=== PATIENT | male | born 1995 | race Caucasian/White ===

== ENCOUNTER 2017-04-12 22:11 | Emergency (ER) | payer BC ==
[~2017-04-12] VITALS: Ht 177.8 cm; Wt 73.0 kg
[2017-04-12 22:14] VITALS: Ht 177.8 cm; Wt 73.0 kg
--- NOTE | 2017-04-12 23:01 | ERD ---
ER Documentation Chief Complaint Date/Time DATE: 04/12/17 TIME: 23:00 Chief Complaint left foot pain since 3 days ago while playing basketball HPI 21-year-old male who presents emergency department for left foot/ankle pain. Stated this started last Thursday while he was playing basketball. Patient reports that he jumped for a rebound, landed on his left foot. Patient is requesting x-ray of his left foot and left ankle. Denies headache, loss of consciousness, dizziness, blurry vision, changes in vision, photophobia, facial pain, ear pain, throat pain, difficulty swallowing, neck pain, shoulder pain, chest pain, cough, hemoptysis, abdominal pain, back pain, loss of appetite, nausea, vomiting, hematochezia, diarrhea, constipation, urinary symptoms, bladder and bowel incontinences, extremity weakness, extremity tenderness, numbness or tingling sensation, recent travel, recent exposure to illness, recent antibiotic use in the last 3 months, fever, chills. No known drug allergies. No past medical history. Surgical history is of nasal surgery secondary to multiple facial injuries. Not working at this time. Smokes weed. Stated that sometimes he uses ecstasy. Denies use of alcoholic beverages. ROS All systems reviewed and are negative except as per history of present illness. Medications Home Meds No Active Prescriptions or Reported Meds Allergies Allergies: Coded Allergies: vancomycin (Verified Allergy, Mild, rash, 06/06/14) PMhx/Soc History of Surgery: No Anesthesia Reaction: No Hx Neurological Disorder: No Hx Respiratory Disorders: No Hx Cardiac Disorders: No Hx Psychiatric Problems: No Hx Miscellaneous Medical Probl: Yes (MENINGITIS) Hx Alcohol Use: No Hx Substance Use: No Hx Tobacco Use: No Physical Exam Vitals Vital Signs Date Time Temp Pulse Resp B/P Pulse Ox O2 Delivery O2 Flow Rate FiO2 04/12/17 22:14 97.4 71 20 124/99 100 Physical Exam CONSTITUTIONAL: Well-appearing; well-nourished; in no apparent distress. HEAD: Normocephalic; atraumatic. EYES: Conjunctiva clear, sclera non-icteric, EOM intact. PERRL Ears: Hearing intact. EACs clear, TMs non-bulging, non-inflamed, translucent & mobile, ossicles normal appearance, No obstructions, no erythema, no discharges Nose: No obstructions. No polyps. No external lesions. Mucosa non-inflamed. No external lesions, septum and turbinates normal. No rhinorrhea. No discharges. Frontal sinus is non-tender to palpation. Maxillary sinus is non-tender to palpation. MOUTH: Moist mucous membranes, no lesion, no obstructions, no vesicles, no thrush, patent airway Throat: Uvula in midline. Right tonsil is +1 with no erythema, no exudate. Left tonsil is +1 with no erythema, no exudate. Tolerating secretions well. Good gag reflex. Patent airway. Neck: Supple, without lesions, bruits, or adenopathy. No mass. Thyroid non- enlarged and non-tender to palpation. CHEST: Symmetrical chest. Respirations even and not labored. No retractions noted. CARDIOVASCULAR: Normal S1, S2. RRR. No murmurs, gallops. RESPIRATORY: Normal chest excursion with respiration; breath sounds clear and equal bilaterally; no wheezes, rhonchi, or rales. Breathing even and unlabored. Speaking in clear, full, and complete sentences w/ ease. ABDOMEN: Normal bowel sounds normal. Soft, round, non-distended, non-guarding, no tenderness, no rebound, no organomegaly, no masses, no pulsating abdominal mass. No hernia. No peritoneal signs. : No CVA tenderness. BACK: Symmetrical shoulder. Spine is midline without deformity, tenderness. No evidence of trauma or deformity. PELVIS: Stable pelvis. No evidence of trauma or deformity. MUSCULOSKELETAL: Normal gait and station. No misalignment, asymmetry, crepitation, defects, tenderness, masses, effusions, decreased range of motion, instability, atrophy or abnormal strength or tone in the head, neck, spine, ribs , pelvis or extremities except left foot has mild swelling on the superior aspect. Left ankle has tenderness to palpation on medial and lateral aspect. Left foot/ankle has no obvious deformity and discoloration. Left pedal pulse is within normal limits. Circulation and sensation is intact. No neurovascular deficits. Left knee is unremarkable. Bilateral hips are stable and unremarkable. Right lower extremities unremarkable. No calf tenderness. NEUROVASCULAR: Distal pulses are present. Pedal pulse are present, equal, and normal. Capillary refills are < 2 seconds. NEUROLOGIC: Alert and oriented x4. Speaks full and clear sentences. Sensation to pain, touch, and proprioception normal. Grossly unremarkable. No neurologic deficits. Romberg test is negative. PSYCHOLOGICAL: The patients mood and manner are appropriate. No hallucinations , delusions. Not SI. Not HI. Has the capacity to decide for self SKIN: Normal for age and ethnicity; warm; dry; good turgor; no apparent lesions or exudates. No rashes, hives, discoloration. Intact. Results 24 hrs Current Medications Medications (Trade) Dose Ordered Sig/Hilda Route PRN Reason Start Time Stop Time Status Last Admin Dose Admin Ketorolac Tromethamine (Toradol) 60 mg ONCE STAT IM 04/12/17 23:01 04/12/17 23:03 DC Procedures/MDM Examination: Please see physical examination. Disease process, medical treatment was explained to the patient and family member. They verbalized understanding and agreed with the diagnostic tests, medical treatment, and follow-up care. Radiology: X-ray of the left ankle Impression: Unremarkable left ankle series. X-ray of the left foot Impression: Stress fracture at the lateral aspect of the proximal metaphysis of the fifth metatarsal. Treatment: Toradol IM. Posterior short leg splint. Crutches. Re-evaluation: Denies headache, dizziness, blurry vision, neck pain, shoulder pain, chest pain, back pain, abdominal pain, nausea, vomiting. No episode of emesis in the emergency department. Alert and oriented 4. Speaks full and clear sentences. Respirations even and unlabored. Lung sounds clear to auscultation. Active bowel sounds. There is no right upper/right lower/ epigastric/left upper/left lower abdominal tenderness and light and deep palpation. Negative on Rovsings sign. Negative Valeri sign. Able to jump 5 times without developing right-sided abdominal pain. No peritoneal signs. Ambulatory with steady gait. No neurovascular deficits. No neurological deficits. No neurovascular deficit prior to and after the application of splint. Consultation: None. Differential diagnosis: Fracture versus dislocation versus displacement versus contusion versus sprain Medical decision makin-year-old male who presents emergency department for left foot/ankle pain. Stated this started last Thursday while he was playing basketball. Patient reports that he jumped for a rebound, landed on his left foot. Patient is requesting x-ray of his left foot and left ankle. Patient's complaint, patient's history about his complaint, my physical findings, diagnostic test results, my reevaluation are consistent my final diagnosis of stress fracture of the proximal metaphysis of the fifth metatarsal. Instructed to follow-up with an orthopedic doctor in the next 24-48 hours. He was also instructed on nonweightbearing to the affected site. Patient verbalized understanding. Medications prescribed are the following: Motrin. [place]. Patient and family member are made aware of the side effects and adverse reactions of the medications prescribed. Instructed on when to seek emergent and medical attention in case allergic/anaphylactic reactions or severe side effects and or adverse reactions to medications. Patient and family member verbalized understanding. Patient instructed Instructed to follow-up with his PCP in 24-48 hours. PCP to refer patient to orthopedic doctor in the next 24-48 hours. Instructed to Call 911 for chest pain, shortness of breath. Advised to come back here in ED as soon as possible for severity of symptoms which includes but not limited to: any new symptoms; shortness of breath/difficulty of breathing; cardiovascular changes; severe gastrointestinal symptoms; signs and symptoms of bleeding and or infection; signs of compartment syndrome/neurovascular changes; neurological changes/deficits. Patient and family member verbalized understanding. Upon discharge, patient is alert and oriented x 4, speaks full and clear sentences, denies pain, has no neurological deficits, has no neurovascular deficits, difficulty of breathing. Breathing even and unlabored. Lung sounds are clear to auscultation. Not in distress. Appears comfortable. Ambulatory with steady gait. Appears satisfied with care provided here in ED. Departure Diagnosis: Primary Impression: Foot pain Additional Impressions: Injury of foot Metatarsal bone fracture Condition: Stable Additional Instructions: Instructed to follow-up with his PCP in 24-48 hours. PCP to refer patient to orthopedic doctor in the next 24-48 hours. Instructed to Call 911 for chest pain, shortness of breath. Advised to come back here in ED as soon as possible for severity of symptoms which includes but not limited to: any new symptoms; shortness of breath/difficulty of breathing; cardiovascular changes; severe gastrointestinal symptoms; signs and symptoms of bleeding and or infection; signs of compartment syndrome/neurovascular changes; neurological changes/deficits. Patient and family member verbalized understanding. ANAYELI BOWIE Apr 12, 2017 23:01
[2017-04-12] MEDS: KETOROLAC 60 MG INJ IM STA ×2 (23:14→23:17)
--- NOTE | 2017-04-12 23:45 | RADRPT ---
PROCEDURE: X-ray left foot CLINICAL INDICATION: Left foot injury and pain TECHNIQUE: 3 views left foot COMPARISON: None FINDINGS: Stress fracture at the lateral proximal metadiaphysis of the fifth metatarsal, with evidence of atte mpted healing and persistent fracture line at the lateral cortex. IMPRESSION: Stress fracture at the lateral aspect of proximal metaphysis of the fifth metatarsal. RPTAT: [facility] Physician Tramaine Date Time Electronically viewed and signed by Juan Pablo Ray Physician on 04/12/2017 23:45 RS/
--- NOTE | 2017-04-12 23:46 | RADRPT ---
PROCEDURE: XR left ankle. CLINICAL INDICATION: Post traumatic lateral left ankle pain TECHNIQUE: AP , oblique and lateral views of theleft ankle were performed. COMPARISON: None. FINDINGS: There is normal mineralization and alignment. No fracture or osseous lesion is identified. The ankle mortis and talar dome are intact. The soft tissues are unremarkable. There is no evidence for a rad iopaque foreign body. RPTAT:HJJR IMPRESSION: Unremarkable left ankle series. Physician Clair Date Time Electronically viewed and signed by Physician Clair on 04/12/2017 23:46 /
[2017-04-13] MEDS ORDERED: HYDR-906 PO (00:09)
[2017-04-13] MEDS ORDERED: IBUP800T25 PO (00:10)
== END 2017-04-13 00:33 | disposition home or self-care (01) ==
LOC: FTE 22:11
DX: S99.922A Unspecified injury of left foot, initial encounter (principal); S92.352A Displaced fracture of fifth metatarsal bone, left foot, initial encounter for closed fracture; X50.9XXA Other and unspecified overexertion or strenuous movements or postures, initial encounter; Y92.9 Unspecified place or not applicable
CPT/HCPCS: 73610; 73630; J1885; Z7502